=== PATIENT | female | born 1960 | race Caucasian/White ===

== ENCOUNTER → 2024-07-17 | Outpatient (CLI) | payer MEDICARE, BC, OTHER, SELFPAY ==
[2024-07-17 10:45] LABS: Cardiac Risk Estimate 2.7 RATIO (3.7-5.6); Cholesterol 204 mg/dL (132-200); Free T4 (Free Thyroxine) 1.02 ng/dL (0.89-1.76); HDL Cholesterol 75 mg/dL (40-60); LDL Cholesterol,Calculated 113 mg/dL (0-130); Thyroid Stimulating Hormone 0.32 uIU/mL (0.55-4.78); Triglycerides 78 mg/dL (30-150)
== END | disposition home or self-care (01) ==
LOC: COPL 09:00
PROVIDERS: PCP Family Medicine; Referring Provider Internal Medicine Cardiovascular Disease; Visit Provider Internal Medicine Cardiovascular Disease
DX: I10 Essential (primary) hypertension (principal); I48.21 Permanent atrial fibrillation; G47.30 Sleep apnea, unspecified; R00.2 Palpitations
CPT/HCPCS: 36415; 80061; 84439; 84443